=== PATIENT | male | born 1960 | race Caucasian/White ===

== ENCOUNTER 2016-05-04 07:48 | Day surgery (SDC) | payer OTHER ==
[~2016-05-04] VITALS: Ht 177.8 cm; Wt 99.8 kg
[~2016-05-04 07:48] MED LIST: LEVO25TA5 PO; Sodium Chloride LOK Flush 10 mL Syringe IV PRN; fentaNYL-PF 50 mCg/mL 2 mL Inj IVPUSH PRN
[2016-05-04 08:07] VITALS: BP 142/75; PULSE 63; RESP 16; O2SAT 99
[2016-05-04] MEDS ORDERED: 0.9% Sodium Chloride 1,000 ML ONE (08:16)
[2016-05-04 08:49] VITALS: BP 125/72; PULSE 64; RESP 16; O2SAT 95
[2016-05-04 09:00] VITALS: BP 131/72; PULSE 72; RESP 16; O2SAT 97
--- NOTE | 2016-05-04 09:19 | ENDO ---
[address] [address] ENDOSCOPY PROCEDURE PATIENT: DIANNE DAVALOS : 1960 MR#: [id number] ADMIT: 05/04/2016 JOB ID: [id number] DATE: 05/04/2016 TYPE OF OPERATION: Colonoscopy. PREOPERATIVE DIAGNOSIS(ES): Colorectal cancer screening. POSTOPERATIVE DIAGNOSIS(ES): Normal colonoscopy. ANESTHESIA: 1. Fentanyl 125 mcg. 2. Versed 6 mg IV administered. DESCRIPTION OF PROCEDURE: After risks and benefits have been explained to the patient, informed consent was obtained. After anesthesia administered, colonoscope was inserted per rectum to the cecum. Mucosa carefully examined. Prep of the patient was excellent. After procedure was done, the scope withdrawn and procedure terminated. FINDINGS: Upon inspection of the anus, no masses, hemorrhoids, ulcers, fissures are seen. Throughout the entire examination, there are no polyps, masses or lesions. Retroflexion was normal. IMPRESSION: Normal colonoscopy. RECOMMENDATIONS: Repeat colonoscopy 10 years for colorectal cancer screening.
== END 2016-05-04 23:59 | disposition home or self-care (01) ==
LOC: END 07:48
PROVIDERS: ATTEND Internal Medicine Gastroenterology
DX: Z12.11 Encounter for screening for malignant neoplasm of colon (principal); Z87.891 Personal history of nicotine dependence
CPT/HCPCS: G0121; G0500; J2250; J7030